=== PATIENT | female | born 1995 | race Caucasian/White ===

== ENCOUNTER 2017-01-08 20:25 | Inpatient (IN) ==
[2017-01-08 21:52] LABS: Basophils % 0.2 % (0.0-0.8); Eosinophils # 0.1 10*3/uL (0.0-0.87); Eosinophils % 0.6 % (0.00-10.9); Hematocrit 35.1 VOL% (35.7-47.0); Hemoglobin 12.3 GM/DL (12.0-16.0); Immature Granulocytes % 1.8 %; Immature Granulocytes Absolute 0.23 #; Lymphocytes # 2.3 10*3/uL (1.4-4.0); Lymphocytes % 18.3 % (21.3-54.2); Mean Corpuscular Hemoglobin 28 PG (27-34); Mean Corpuscular Volume 79.1 FL (87-102); Monocytes # 0.6 10*3/uL (0.11-0.8); Monocytes % 4.9 % (1.7-12.7); Neutrophils # 9.3 10*3/uL (1.4-7.4); Neutrophils % 74.2 % (38.7-73.9); Platelet Count 205 T/CUMM (130-400); Red Blood Count 4.44 MC/CUMM (3.8-5.5); White Blood Count 12.5 T/CUMM (4-12)
[2017-01-09] MEDS: LACTATED RINGERS 1,000 ML IV SCH ×4 (00:10→23:13)
[2017-01-09] MEDS ORDERED: ACETAMINOPHEN 500 MG TABLET PO PRN (00:14)
[2017-01-09] MEDS ORDERED: MEPERIDINE 50 MG/1 ML VIAL IV PRN (00:14)
--- NOTE | 2017-01-09 08:08 | OB/GYN History & Physical ---
History of Present Illness Chief complaint: 39+ weeks elective induction History of present illness: Ms. Calero is a 21 year old female 1 para 0 at 39+ weeks estimated gestational age with ultrasound estimated weight of 7 pounds with adequate clinical pelvimetry and normal JANE confirmed vertex presentation on ultrasound admitted for elective induction. The risks benefits alternatives were explained patient detail and informed consent was obtained Home Medications Medication Instructions Recorded Confirmed Type Multivitamin () [ 1 tablet PO DAILY 08/29/16 01/08/17 History Vitamin] Ranitidine Tab [Zantac Tab] 75 mg PO BID 12/14/16 01/08/17 History Allergies Allergy/AdvReac Type Severity Reaction Status Date / Time adhesive tape Allergy Intermediate HIVES Verified 01/08/17 21:05 povidone-iodine Allergy Intermediate HIVES Verified 11/23/16 14:43 [From Betadine] soap [From Betadine] Allergy Intermediate HIVES Verified 11/23/16 14:43 12 point system: reviewed and no additional remarkable complaints except as stated Medical,Surgical,& Family Hx - Medical History Neurology: History of: Migraine Gastrointestinal: History of: GI Problems (chronic stomach pain) Reproductive: No history of: Ectopic , Complication Other: History of: Miscellaneous Medical Problems (wisdom teeth) - Surgical History HEENT Surgeries: Surgical HX of: Tonsilectomy & Adenoidectomy Abdominal Surgeries: Surgical HX of: Appendectomy Reproductive Surgeries: Patient denies;: Section Orthopedic Surgeries: Surgical HX of;: Orthopedic Surgery (rt knee) - Family History Family History: Reports;: Family Cancer (grandmother colon ca), Family Diabetes (grandparents), Family Heart Disease (grandparents), Family Hypertension ( grandfather), Family Stroke (grandmother) Denies;: Family Anesthesia Reaction, Family Hematology, Family Psychiatric Problems, Additional Family History - Social History Smoking Status: Never smoker Frequency of Alcohol Use: None 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 - Constitutional Vitals: Vital Signs Temp Pulse Resp BP Pulse Ox 01/09/17 04:00 69 18 94/50 01/09/17 00:00 98.6 F 67 18 119/70 01/08/17 20:59 98.7 F 77 20 123/72 100 General appearance: no acute distress - Head Head exam: Present: normal inspection, normocephalic, atraumatic - Eye Eye exam: Present: EOMI - Neck Neck exam: Present: normal inspection - Respiratory Respiratory exam: Present: clear to auscultation bilaterally - Breast Breasts: as per HPI Menstruation: as per HPI - Cardiovascular Cardiovascular exam: Present: regular rate and rhythm - GI/Abdominal GI/Abdominal exam: Present: normal bowel sounds - Extremities Exam Extremities exam: Present: normal inspection, normal capillary refill - Back Exam Back exam: Present: normal inspection - Neurological Exam Neurological exam: Present: alert, oriented X3 - Psychiatric Psychiatric exam: Present: normal affect, normal mood - Skin Skin exam: Present: normal color, warm Assessment and Plan (1) with 39 completed weeks gestation Status: Acute Current Visit: Yes (2) Elective induction of labor planned Status: Acute Current Visit: Yes Results - Labs CBC & BMP: 01/08/17 21:22
[2017-01-09] MEDS: BUTORPHANOL 2 MG/ML VIAL IV PRN ×3 (09:08→17:01)
[2017-01-09] MEDS: ONDANSETRON 4 MG/2 ML VIAL IV PRN ×2 (09:08→19:01)
[2017-01-09] MEDS: PROMETHAZINE 25 MG/1 ML VIAL IM PRN (23:27)
[2017-01-10] MEDS: PROMETHAZINE 25 MG/1 ML VIAL IM PRN (05:02)
[2017-01-10] MEDS ORDERED: fentaNYL 2 MCG/ROPIV 0.2% EPID 150 ML EPIDURAL SCH (06:49)
[2017-01-10] MEDS ORDERED: CITRIC ACID/SODIUM CITRATE 30 ML UDCUP PO ONE ×2 (06:50→07:22)
[2017-01-10] MEDS ORDERED: FAMOTIDINE 20 MG/2 ML VIAL IV ONE ×2 (06:50→07:22)
[2017-01-10] MEDS ORDERED: LACTATED RINGERS 500 ML IV ONE (07:22)
[2017-01-10] MEDS ORDERED: LACTATED RINGERS 1,000 ML IV ONE (07:22)
[2017-01-10] MEDS ORDERED: diphenhydrAMINE 50 MG/1 ML VIAL IV PRN ×2 (07:23)
[2017-01-10] MEDS ORDERED: ePHEDrine 50 MG/ML AMP IV PRN (07:23)
[2017-01-10] MEDS ORDERED: hydrOXYzine HCL 25 MG/1 ML VIAL IM PRN (07:23)
[2017-01-10] MEDS ORDERED: OXYTOCIN/LR 20 UNIT/1,000 ML BAG IV ONE ×2 (09:43→13:57)
[2017-01-10] MEDS ORDERED: OXYTOCIN/LR 20 UNIT/1,000 ML BAG IV SCH (10:15)
[2017-01-10 11:33] LABS: Apearance,Urine Clear (Clear); Bilirubin,Urine Negative (Negative); Blood, Urine Large mg/dL (Negative); Glucose,Urine (UA) Negative (Negative); Ketones,Urine Negative (Negative); Nitrite,Urine Negative (Negative); Protein,Urine 100 MG/DL; Urine Color Yellow (Yellow); Urine Specific Gravity 1.015 (1.001-1.035); Urine Urobilinogen 0.2 EU/DL (0.2-1.0)
[2017-01-10] MEDS ORDERED: WITCH HAZEL PADS 100/JAR TOP PRN (13:57)
[2017-01-10] MEDS ORDERED: HYDROCORTISONE 2.5% RECTAL CREAM 30 GM TUBE TOP PRN (13:57)
[2017-01-10] MEDS ORDERED: LANOLIN 50% CREAM 0.3 OZ TUBE TOP PRN (13:57)
[2017-01-10] MEDS ORDERED: BISACODYL 10 MG SUPP RECTAL PRN (13:57)
[2017-01-10] MEDS ORDERED: BENZOCAINE 20%/MENTHOL 0.5% SPRAY 56 GM CAN TOP PRN (13:57)
[2017-01-10] MEDS ORDERED: DIPH/TET/ACEL PERT BOOSTER VACCINE 0.5 ML VIAL IM ONE (13:57)
[2017-01-10] MEDS ORDERED: ACETAMINOPHEN 325 MG TABLET PO PRN (13:57)
[2017-01-10] MEDS ORDERED: RHO(D) IMMUNE GLOBULIN 300 MCG SYRINGE IM ONE (13:57)
[2017-01-10] MEDS ORDERED: ONDANSETRON 4 MG/2 ML VIAL IV PRN (13:57)
[2017-01-10] MEDS ORDERED: MEASLES/MUMPS/RUBELLA VACCINE 0.5 ML VIAL SUBCUT ONE (13:57)
[2017-01-10] MEDS ORDERED: oxyCODONE/ACETAMINOPHEN 5-325 MG TABLET PO PRN (13:57)
--- NOTE | 2017-01-10 13:57 | OB/GYN Progress Note ---
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 Zaragoza dictating vaginal delivery And in LDR environment under sterile conditions, the patient progressed to completely dilated. She was allowed to push and under [epidural] anesthesia had a normal spontaneous vaginal delivery of a live born female infant unweighed Apgars pending over a [second-degree midline episiotomy]. The infant' s nose and oropharynx were bulb and DeLee suctioned, and the infant had spontaneous cry after delivery. There was moderate meconium-stained fluid on rupture membranes earlier in the course of labor which was treated with amnioinfusion. There is a nuchal cord 1 which was easily reduced the cord was doubly clamped and cut and the was handed over to the pediatric team for care. Cord blood was obtained the placenta delivered spontaneously intact and IV Pitocin was done. The midline episiotomy was repaired with 2-0 Monocryl suture in usual fashion under epidural anesthesia without complication there were no cervical tears. There were no periurethral tears. Estimated blood loss was 250 mL. There were no complications. The bladder was emptied using a catheter prior to delivery. All sponge needle and instrument counts were correct -3 at the end of the delivery. 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
--- NOTE | 2017-01-10 20:17 | Anesthesia Post-Op ---
Anesthesia Post OP - Post Ansesthetic Evaluation Patient seen in post op: Yes Resp: within normal limits CV: within normal limits Mental: within normal limits Temp: within normal limits [id number]: within normal limits Nausea and Vomiting: within normal limits Pain: within normal limits
[2017-01-10] MEDS: DOCUSATE SODIUM 100 MG CAPSULE PO SCH (20:51)
[2017-01-10] MEDS ORDERED: RANITIDINE 75 MG PO SCH (21:00)
[2017-01-10] MEDS: oxyCODONE/ACETAMINOPHEN 5-325 MG TABLET PO PRN (23:54)
[2017-01-10] MEDS: IBUPROFEN 800 MG TABLET PO PRN (23:54)
[2017-01-11 06:49] LABS: Basophils % 0.3 % (0.0-0.8); Eosinophils # 0.2 10*3/uL (0.0-0.87); Eosinophils % 1.3 % (0.00-10.9); Hematocrit 30.1 VOL% (35.7-47.0); Hemoglobin 10.5 GM/DL (12.0-16.0); Immature Granulocytes % 1.6 %; Immature Granulocytes Absolute 0.22 #; Lymphocytes % 21.4 % (21.3-54.2); Mean Corpuscular HGB Conc 34.9 GM/DL (32-36); Mean Corpuscular Hemoglobin 28 PG (27-34); Mean Corpuscular Volume 80.1 FL (87-102); Mean Platelet Volume 11.1 FL (9.6-12.0); Monocytes # 0.8 10*3/uL (0.11-0.8); Monocytes % 5.6 % (1.7-12.7); Neutrophils # 9.9 10*3/uL (1.4-7.4); Neutrophils % 69.8 % (38.7-73.9); Platelet Count 171 T/CUMM (130-400); Red Blood Count 3.76 MC/CUMM (3.8-5.5); Red Cell Distribution Width 14.2 % (9.3-17.3); White Blood Count 14.1 T/CUMM (4-12)
--- NOTE | 2017-01-11 07:56 | OB/GYN Progress Note ---
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
[2017-01-11] MEDS: DOCUSATE SODIUM 100 MG CAPSULE PO SCH ×2 (08:19→19:42)
[2017-01-11] MEDS ORDERED: MULTIVITAMIN PO SCH (09:00)
[2017-01-12] MEDS: oxyCODONE/ACETAMINOPHEN 5-325 MG TABLET PO PRN (01:54)
[2017-01-12] MEDS: IBUPROFEN 800 MG TABLET PO PRN (01:54)
[2017-01-12] MEDS: DOCUSATE SODIUM 100 MG CAPSULE PO SCH ×2 (01:56→08:22)
[2017-01-12 07:47] VITALS: BP 124/69
--- NOTE | 2017-01-12 08:09 | Discharge Summary ---
Hospital Course - Hospital Course Hospital Course: the patient did well. She had quick return of bowel bladder function. She remained afebrile and normotensive throughout her hospitalization. She is counseled discharged on day #2 on a regular diet Diagnosis - Discharge Diagnosis (1) with 39 completed weeks gestation Status: Acute (2) Elective induction of labor planned Status: Acute Specialty Discharge - Follow Up or Referrals Follow up with: Donald Zaragoza MD [Physician] - Discharge Plan - Discharge Data Disposition: Disch To Home/Self Care Condition at Discharge: Stable Discharge Diet: regular diet Activity: increase activity as tolerated Hygiene: may shower Weight Bearing at Discharge: full weight bearing Driving: no restrictions Contact your physician if you experience:: fever over 101, Difficulty voiding, Redness or swelling, Nausea/Vomiting, Shortness of breath, Bleeding, pain uncontrolled by pain medications - Discharge Medications New HYDROcodone/ACETAMIN 5-325 [Mcgregor 5-325] 1 tablet PO Q4H PRN #15 tablet PRN Reason: Abdominal Pain Ibuprofen Tab [Motrin Tab] 800 mg PO Q6H PRN tablet PRN Reason: Pain Moderate (4-7) Continue Multivitamin () [ Vitamin] 1 tablet PO DAILY Discontinued Ranitidine Tab [Zantac Tab] 75 mg PO BID - Follow Up or Referral Follow Up: Donald Zaragoza MD [Physician] - 2 Weeks - Forms/Instructions Instructions: Perineal Care (DC), Vaginal Delivery (DC), Bleeding (DC) Exam - Constitutional Vitals: Period Temp Pulse Resp BP Sys/Laureano Pulse Ox Last 24 Hr 97.1 F-98.9 F 76-96 18-20 124-148/69-84 98-98 DS: Provider Date of admission: 01/08/17 20:25 Primary care physician: . No PCP Attending physician on admission: Kevin Martínez Consults: 01/09/17 00:14 Consult to Anesthesiology [CONS] Routine Consulting Provider: Reason for Anesthesiology: Epidural Consult Comment: Epidural for pain managment 01/10/17 13:58 Consult to Property Man [CONS] Routine Consult Property Man: Breast Feeding Discharging clinician: Kevin Martínez Expected date of discharge: 01/12/17
== END 2017-01-12 11:30 | disposition home or self-care (01) | DRG 775 ==
LOC: N.LD 20:25 → N.OB 01-10 16:38
PROVIDERS: ADMIT Specialist; ATTEND Specialist

== ENCOUNTER 2018-12-03 07:39 | Observation (INO) ==
[2018-12-03] MEDS ORDERED: SODIUM CHLORIDE 0.9% 1,000 ML IV STA (08:11)
[2018-12-03] MEDS ORDERED: ALBUTEROL 2.5 MG/3 ML NEB RESP TX STA (08:11)
[2018-12-03] MEDS ORDERED: PIPERACILLIN/TAZOBACTAM 3,375 MG in SODIUM CHLORIDE 0.9% 100 ML IV STA (08:14)
[2018-12-03 08:53] LABS: Basophils % 0.3 % (0.0-0.8); Eosinophils # 0.1 10*3/uL (0.0-0.87); Eosinophils % 1.4 % (0.00-10.9); Hematocrit 32.8 VOL% (35.7-47.0); Hemoglobin 10.9 GM/DL (12.0-16.0); Lymphocytes # 1.5 10*3/uL (1.4-4.0); Lymphocytes % 14.6 % (21.3-54.2); Mean Corpuscular HGB Conc 33.2 GM/DL (32-36); Mean Platelet Volume 9.4 FL (9.6-12.0); Monocytes % 5.5 % (1.7-12.7); Neutrophils % 76.2 % (38.7-73.9); Platelet Count 232 T/CUMM (130-400); Red Blood Count 4.05 MC/CUMM (3.8-5.5)
[2018-12-03 09:14] LABS: Alanine Aminotransferase 15 U/L (13-56); Albumin 2.4 G/DL (3.4-5.0); Alkaline Phosphatase 106 U/L (45-117); Aspartate Amino Transferase 15 U/L (0-37); Bilirubin,Total < 0.39 MG/DL (0.2-1.0); Blood Urea Nitrogen 6 MG/DL (7-18); Calcium 8.4 MG/DL (8.5-10.1); Glucose 77 MG/DL (74-106); Osmolality,Calculated 271.7 MOS/KG (273-304); Total Protein 6.8 G/DL (6.4-8.3)
[2018-12-03] MEDS: guaiFENesin/CODEINE 5 ML LIQUID PO PRN ×2 (11:45→19:58)
[2018-12-03] MEDS: LACTATED RINGERS 1,000 ML IV SCH ×2 (11:59→22:06)
[2018-12-03] MEDS: ALBUTEROL 2.5 MG/3 ML NEB RESP TX PRN ×2 (15:04→20:30)
[2018-12-03] MEDS: PIPERACILLIN/TAZOBACTAM 3,375 MG in SODIUM CHLORIDE 0.9% 100 ML IV SCH ×2 (16:25→23:34)
[2018-12-03] MEDS ORDERED: ACETAMINOPHEN 500 MG TABLET PO PRN (16:26)
[2018-12-04] MEDS: guaiFENesin/CODEINE 5 ML LIQUID PO PRN ×2 (02:07→11:45)
[2018-12-04] MEDS: ALBUTEROL 2.5 MG/3 ML NEB RESP TX PRN (03:34)
[2018-12-04] MEDS: PIPERACILLIN/TAZOBACTAM 3,375 MG in SODIUM CHLORIDE 0.9% 100 ML IV SCH (07:35)
[2018-12-04 11:33] VITALS: BP 94/51
== END 2018-12-04 14:50 | disposition home or self-care (01) ==
LOC: N.ED 07:39 → N.EDINP 07:39 → N.OB 10:37
PROVIDERS: ADMIT Specialist; ATTEND Specialist

== ENCOUNTER 2019-02-11 05:03 | Inpatient (IN) ==
[2019-02-11] MEDS ORDERED: MEPERIDINE 50 MG/1 ML VIAL IV PRN (05:19)
[2019-02-11] MEDS ORDERED: BUTORPHANOL 2 MG/ML VIAL IV PRN (05:19)
[2019-02-11] MEDS ORDERED: ONDANSETRON 4 MG/2 ML VIAL IV PRN ×3 (05:19→20:31)
[2019-02-11] MEDS ORDERED: OXYTOCIN/LR 20 UNIT/1,000 ML BAG IV SCH (05:30)
[2019-02-11 05:41] LABS: Basophils # 0.1 10*3/uL (0.0-0.2); Basophils % 0.4 % (0.0-0.8); Eosinophils # 0.3 10*3/uL (0.0-0.87); Eosinophils % 2.4 % (0.00-10.9); Hematocrit 41.2 VOL% (35.7-47.0); Hemoglobin 13.6 GM/DL (12.0-16.0); Immature Granulocytes % 1.8 %; Lymphocytes # 2.6 10*3/uL (1.4-4.0); Mean Corpuscular Volume 83.6 FL (87-102); Monocytes % 5.7 % (1.7-12.7); Neutrophils % 66.7 % (38.7-73.9); Platelet Count 246 T/CUMM (130-400); Red Blood Count 4.93 MC/CUMM (3.8-5.5); Red Cell Distribution Width 14.2 % (9.3-17.3); White Blood Count 11.2 T/CUMM (4-12)
[2019-02-11 06:01] LABS: Alanine Aminotransferase 20 U/L (13-56); Albumin 2.7 G/DL (3.4-5.0); Alkaline Phosphatase 124 U/L (45-117); Aspartate Amino Transferase 18 U/L (0-37); Bilirubin,Total < 0.39 MG/DL (0.2-1.0); Blood Urea Nitrogen 8 MG/DL (7-18); Calcium 9.5 MG/DL (8.5-10.1); Glucose 84 MG/DL (74-106); Osmolality,Calculated 275.4 MOS/KG (273-304); Total Protein 7.1 G/DL (6.4-8.3)
[2019-02-11] MEDS: LACTATED RINGERS 1,000 ML IV SCH ×2 (06:24→11:15)
[2019-02-11] MEDS ORDERED: AMPICILLIN INJ 2,000 MG in SODIUM CHLORIDE 0.9% 100 ML IV ONE (08:00)
[2019-02-11] MEDS ORDERED: diphenhydrAMINE 50 MG/1 ML VIAL IV PRN ×2 (08:25)
[2019-02-11] MEDS ORDERED: ePHEDrine 50 MG/ML AMP IV PRN (08:25)
[2019-02-11] MEDS ORDERED: FAMOTIDINE 20 MG/2 ML VIAL IV ONE (08:25)
[2019-02-11] MEDS ORDERED: hydrOXYzine HCL 25 MG/1 ML VIAL IM PRN (08:25)
[2019-02-11] MEDS ORDERED: CITRIC ACID/SODIUM CITRATE 30 ML UDCUP PO ONE (08:25)
[2019-02-11] MEDS ORDERED: NALOXONE 0.4 MG/ML VIAL IV PRN (08:25)
[2019-02-11] MEDS ORDERED: PROMETHAZINE 25 MG/1 ML VIAL IM PRN (08:25)
[2019-02-11] MEDS: fentaNYL 2 MCG/ROPIV 0.2% EPID 100 ML EPIDURAL SCH ×2 (11:20→18:34)
[2019-02-11 12:47] LABS: Apearance,Urine CLEAR (Clear); Bilirubin,Urine Negative (Negative); Blood, Urine Small mg/dL (Negative); Glucose,Urine (UA) Negative (Negative); Ketones,Urine Negative (Negative); Mucus,Urine Occasional /LPF (Occasional); Nitrite,Urine Negative (Negative); Protein,Urine 30 MG/DL; RBC,Urine 1 /HPF (0-4); Urine Color Yellow (Yellow); Urine Specific Gravity 1.011 (1.001-1.035); Urine Urobilinogen < 2.0 EU/DL (0.2-1.0); WBC,Urine <1 /HPF (0-6)
[2019-02-11] MEDS ORDERED: ROPIVACAINE 0.5% 30 ML VIAL ONE ×2 (15:18→19:09)
[2019-02-11] MEDS ORDERED: ACETAMINOPHEN 500 MG TABLET PO ONE (18:27)
[2019-02-11] MEDS ORDERED: miSOPROStol 200 MCG TABLET ONE (19:03)
[2019-02-11] MEDS ORDERED: CARBOPROST TROMETHAMINE 250 MCG/ML AMP IM ONE (19:04)
[2019-02-11] MEDS ORDERED: METHYLERGONOVINE 0.2 MG/1 ML AMP ONE (19:04)
[2019-02-11] MEDS ORDERED: fentaNYL 100 MCG/2 ML VIAL ONE (19:10)
[2019-02-11] MEDS ORDERED: miSOPROStol 200 MCG TABLET RECTAL ONE (20:20)
[2019-02-11] MEDS ORDERED: HYDROCORTISONE 2.5% RECTAL CREAM 30 GM TUBE TOP PRN (20:31)
[2019-02-11] MEDS ORDERED: BENZOCAINE 20%/MENTHOL 0.5% SPRAY 56 GM CAN TOP PRN (20:31)
[2019-02-11] MEDS ORDERED: RHO(D) IMMUNE GLOBULIN 300 MCG SYRINGE IM ONE (20:31)
[2019-02-11] MEDS ORDERED: MEASLES/MUMPS/RUBELLA VACCINE 0.5 ML VIAL SUBCUT ONE (20:31)
[2019-02-11] MEDS ORDERED: WITCH HAZEL PADS 100/JAR TOP PRN (20:31)
[2019-02-11] MEDS ORDERED: DIPH/TET/ACEL PERT BOOSTER VACCINE 0.5 ML VIAL IM ONE (20:31)
[2019-02-11] MEDS ORDERED: ACETAMINOPHEN 325 MG TABLET PO PRN (20:31)
[2019-02-11] MEDS ORDERED: LANOLIN 50% CREAM 0.3 OZ TUBE TOP PRN (20:31)
[2019-02-11] MEDS ORDERED: OXYTOCIN/LR 20 UNIT/1,000 ML BAG IV ONE (20:31)
[2019-02-11] MEDS ORDERED: BISACODYL 10 MG SUPP RECTAL PRN (20:31)
[2019-02-11] MEDS ORDERED: oxyCODONE/ACETAMINOPHEN 5-325 MG TABLET PO PRN ×2 (20:31)
[2019-02-12] MEDS: IBUPROFEN 800 MG TABLET PO PRN ×4 (04:07→21:14)
[2019-02-12 06:05] LABS: Basophils % 0.2 % (0.0-0.8); Eosinophils # 0.2 10*3/uL (0.0-0.87); Eosinophils % 1.3 % (0.00-10.9); Hematocrit 33.6 VOL% (35.7-47.0); Immature Granulocytes % 1.3 %; Immature Granulocytes Absolute 0.18 #; Lymphocytes # 2.4 10*3/uL (1.4-4.0); Mean Corpuscular HGB Conc 33.6 GM/DL (32-36); Mean Corpuscular Volume 82.6 FL (87-102); Mean Platelet Volume 10.6 FL (9.6-12.0); Monocytes % 6.6 % (1.7-12.7); Neutrophils % 72.6 % (38.7-73.9); Red Blood Count 4.07 MC/CUMM (3.8-5.5); Red Cell Distribution Width 14.1 % (9.3-17.3); White Blood Count 13.5 T/CUMM (4-12)
[2019-02-12 06:06] LABS: Hemoglobin 11.3 GM/DL (12.0-16.0); Platelet Count 193 T/CUMM (130-400)
[2019-02-12] MEDS: DOCUSATE SODIUM 100 MG CAPSULE PO SCH ×2 (08:31→21:14)
[2019-02-13 07:45] VITALS: BP 114/65
[2019-02-13] MEDS ORDERED: DIPH/TET/ACEL PERT BOOSTER VACCINE 0.5 ML VIAL IM ONE (09:47)
[2019-02-13] MEDS: DOCUSATE SODIUM 100 MG CAPSULE PO SCH (09:57)
== END 2019-02-13 12:00 | disposition home or self-care (01) | DRG 807 ==
LOC: N.LDOUT 05:03 → N.LD 05:05 → N.OB 23:00
PROVIDERS: ADMIT Specialist; ATTEND Specialist